=== PATIENT | male | born 1965 | race Caucasian/White ===

== ENCOUNTER 2021-02-05 16:57 | Outpatient (CLI) | payer BC ==
--- NOTE | 2021-02-05 19:24 | XRAY Report ---
PROCEDURE: Lumbar Spine 2 View INDICATIONS: LOW BACK PAIN TECHNIQUE: 3 views of the lumbar spine were acquired. COMPARISON: None. FINDINGS: Bones: 5 fjr-eku-bdanfft vertebrae are present. There is normal bony alignment. No vertebral body compression fractures. No suspicious bony lesions. Mild degenerative disc changes noted throughout t he lumbar spine. Mild L3-L4, L4-L5 L5-S1 facet arthropathy. Soft tissues: Overlying bowel gas pattern is normal. No suspicious soft tissue calcifications. Chol ecystectomy clips. IMPRESSION: 1. Mild multilevel degenerative disc disease. 2. Mild multilevel facet arthropathy. 3. No fracture. No acute osseous lesion. If there is continued clinical concern for pathology, then M RI should be considered for further evaluation. Reviewed by: Machelle Somers MD, PhD on 02/05/2021 7:23 PM PDT Approved by: Machelle Somers MD, PhD on 02/05/2021 7:23 PM PDT Station ID: [id number]
--- NOTE | 2021-02-05 19:25 | XRAY Report ---
PROCEDURE: Skull Complete INDICATIONS: CONGENITAL DEFORMITY OF SKULL TECHNIQUE: 3 view(s) of the skull acquired. COMPARISON: None FINDINGS: Bones: No fractures. No suspicious bony lesions. Visualized sinuses appear clear. Soft tissues: No soft tissue calcifications. No suspicious soft tissue densities. IMPRESSION: No calvarial deformity is identified by plain from radiograph. Reviewed by: Machelle Somers MD, PhD on 02/05/2021 7:24 PM PDT Approved by: Machelle Somers MD, PhD on 02/05/2021 7:24 PM PDT Station ID: [id number]
== END 2021-02-05 16:58 | disposition home or self-care (01) ==
LOC: DI 16:57
PROVIDERS: ATTEND Internal Medicine
DX: Q67.4 Other congenital deformities of skull, face and jaw (principal); M54.5 Low back pain; M47.816 Spondylosis without myelopathy or radiculopathy, lumbar region; M47.817 Spondylosis without myelopathy or radiculopathy, lumbosacral region; M51.36 Other intervertebral disc degeneration, lumbar region

== ENCOUNTER 2021-04-23 01:21 | Emergency (ER) | payer BC ==
[2021-04-23 01:32] VITALS: BP 165/73
--- NOTE | 2021-04-23 01:47 | ED Physician Documentation ---
History of Present Illness - Stated complaint Stated Complaint: L EAR PX - Chief complaint Chief Complaint: Trauma Hd/Nk - History obtained from History obtained from: Patient - Additonal information Additional information: Patient comes emergency department chief complaint of left ear pain for about the last 12 hours. He states he has a lot of chronic pain in his neck and back and has been off narcotics for 5 years, so he often takes hot baths to try to relieve the pain. He states that he frequently gets water in his ears and this has resulted in repeated bouts of otitis externa. The patient states that he also gets cerumen impactions and that this also sometimes causes his pain. No fevers or chills. No upper respiratory symptoms. No other complaints at this time. Review of Systems Ten Systems: 10 systems reviewed and negative Constitutional: reports: Reviewed and negative Eyes: reports: Reviewed and negative Ears: reports: Ear pain Nose: reports: Reviewed and negative Throat: reports: Reviewed and negative Cardiac: reports: Reviewed and negative Respiratory: reports: Reviewed and negative GI: reports: Reviewed and negative : reports: Reviewed and negative Skin: reports: Reviewed and negative Musculoskeletal: reports: Reviewed and negative Neurologic: reports: Reviewed and negative Psychiatric: reports: Reviewed and negative Endocrine: reports: Reviewed and negative Immunocompromised: reports: Reviewed and negative PD PAST MEDICAL HISTORY - Present Medications Home Medications: Ambulatory Orders Medication Instructions Recorded Confirmed Ciproflox/Dexameth Otic Drops 4 drops OT BID #7.5 ml 04/23/21 [Ciprodex Otic Drops] PD ED PE NORMAL - Vitals Vital signs reviewed: Yes - General General: Alert and oriented X 3, No acute distress, Well developed/nourished - HEENT HEENT: Atraumatic, PERRL, EOMI, Moist mucous membranes, Other (Hard, dry appearing cerumen impacted deep in left external auditory canal. Moderate erythema with slight amount of sloughing of canal skin, without edema. TM not visualized. 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 Tympanic membrane was visualized after the procedure and found to be intact. PD MEDICAL DECISION MAKING - ED course Complexity details: considered differential, d/w patient ED course: Ear was irrigated as above. I gave the patient a prescription for Ciprodex dr york. We have discussed the usual indications for follow-up and return. Departure - Departure Disposition: 01 Home, Self Care Clinical Impression: Cerumen impaction Qualifiers: Laterality: left Qualified Code(s): H61.22 - Impacted cerumen, left ear Otitis externa Qualifiers: Otitis externa type: swimmer's ear Chronicity: acute Laterality: left Qualified Code(s): H60.332 - Swimmer's ear, left ear Condition: Stable Instructions: ED Otitis Externa, ED Earwax Removal Prescriptions: Ciproflox/Dexameth Otic Drops [Ciprodex Otic Drops] 4 drops OT BID #7.5 ml
== END 2021-04-23 02:15 | disposition home or self-care (01) ==
LOC: ED 01:21
DX: H61.22 Impacted cerumen, left ear (principal); H60.332 Swimmer's ear, left ear
CPT/HCPCS: 69209; 99282; 99284

== ENCOUNTER 2021-04-25 09:34 | Emergency (ER) | payer BC ==
--- NOTE | 2021-04-25 12:06 | ED Physician Documentation ---
PD HPI HEENT - Chief complaint Chief Complaint: Heent - History obtained from History obtained from: Patient - Additional information Additional information: Patient returns emergency department chief complaint of left ear pain. He was seen here for the same thing a few nights ago except at that time, he felt that he had a cerumen impaction again and was requesting irrigation. The patient indeed was found to have a cerumen impaction as well as early otitis externa and after having his canal irrigated, he was started on Ciprodex drops. He was also instructed to keep his ear canal dry. The patient returns emergency department, stating that in the ensuing days, his left ear has become increasingly painful to the point where he can lay on it at night. No drainage. He states it feels as though his ear is swollen and he can't hear very well. No fevers or chills. No facial pain. Patient does note that while he initially could get the drops to go in his ear, and now it feels like they just sit on the edge and trickle out. No other complaints at this time. Review of Systems Ten Systems: 10 systems reviewed and negative Constitutional: reports: Reviewed and negative Eyes: reports: Reviewed and negative Ears: reports: Ear pain Nose: reports: Reviewed and negative Throat: reports: Reviewed and negative Cardiac: reports: Reviewed and negative Respiratory: reports: Reviewed and negative GI: reports: Reviewed and negative : reports: Reviewed and negative Skin: reports: Reviewed and negative Musculoskeletal: reports: Reviewed and negative Neurologic: reports: Reviewed and negative Psychiatric: reports: Reviewed and negative Endocrine: reports: Reviewed and negative Immunocompromised: reports: Reviewed and negative PD PAST MEDICAL HISTORY - Past Medical History Past Medical History: Yes Respiratory: None GI: GERD Derm: None - Past Surgical History Past Surgical History: No - Present Medications Home Medications: Ambulatory Orders Medication Instructions Recorded Confirmed Ciproflox/Dexameth Otic Drops 4 drops OT BID #7.5 ml 04/23/21 [Ciprodex Otic Drops] HYDROcod/ACETAM 5/325 [[place] 5/325] 1 - 2 tablet PO Q6H PRN #14 tablet 04/25/21 - Allergies Allergies/Adverse Reactions: Allergies Allergy/AdvReac Type Severity Reaction Status Date / Time No Known Drug Allergies Allergy Verified 04/25/21 10:10 - Social History Does the pt smoke?: No Smoking Status: Never smoker Does the pt drink ETOH?: No Does the pt have substance abuse?: No - Immunizations Immunizations are current?: Yes - POLST Patient has POLST: No PD ED PE NORMAL - Vitals Vital signs reviewed: Yes - General General: Alert and oriented X 3, No acute distress, Well developed/nourished - HEENT HEENT: Atraumatic, PERRL, EOMI, Ears normal (Moderate edema of external auditory canal on the left. No drainage. Mild amount of skin sloughing. No bleeding. 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 I placed an ear wick in the patient's left external auditory canal. I have instructed him regarding application of the drops to the wick and that he should continue on his Ciprodex for another week. I have also started him on an oral analgesic, as he is having a fair amount of pain related to this. We've discussed home management and symptoms, as well as usual indications for return. Departure - Departure Disposition: 01 Home, Self Care Clinical Impression: Otitis externa Qualifiers: Otitis externa type: swimmer's ear Chronicity: acute Laterality: left Qualified Code(s): H60.332 - Swimmer's ear, left ear Condition: Stable Instructions: ED Otitis Externa Prescriptions: HYDROcod/ACETAM 5/325 [[place] 5/325] 1 - 2 tablet PO Q6H PRN #14 tablet PRN Reason: Pain Comments: Your otitis externa is little worse than it was, probably because of the moisture from having your ear irrigated. You have been on the correct drops and should continue these for the next week at home. An ear wick has been placed today to help facilitate passage of the drops into your swollen ear canal. As the inflammation in your ear dies down, the wick will fall out on its own. You should continue to Use the drops, and use the technique that we have discussed to allow the drops to soak into the wick. Please avoid any other moisture in your ear. If you continue to have problems after the drops are done, you will need to talk to your doctor about being referred to the ear nose throat specialist to have another look at your ear. Your pain medication prescription has been electronically transmitted to [facility] in [place]. Discharge Date/Time: 04/25/21 12:14
[2021-04-25 12:14] VITALS: BP 154/87
== END 2021-04-25 12:14 | disposition home or self-care (01) ==
LOC: ED 09:34
DX: H60.332 Swimmer's ear, left ear (principal)
CPT/HCPCS: 99282; 99283

== ENCOUNTER 2021-10-08 16:44 | Emergency (ER) | payer BC ==
[2021-10-08] MEDS ORDERED: KETOROLAC 60 MG/2 ML VIAL IM STA (17:01)
--- NOTE | 2021-10-08 17:03 | ED Physician Documentation ---
PD HPI CHEST PAIN - Stated complaint Stated Complaint: RT SIDE RIB PX/INJ/SOA - Chief complaint Chief Complaint: Resp - History obtained from History obtained from: Patient - Additional information Additional information: 56-year-old gentleman was leaning over the center console in his car and felt excruciating pain in the right mid anterolateral chest from putting all of his weight on that part of his chest. No other injuries but now he has a headache related to the pain. Nausea but no vomiting. Is hard to take a deep breath and he feels mildly short of breath with it. Review of Systems Constitutional: denies: Fever, Chills Throat: denies: Sore throat Cardiac: denies: Palpitations Respiratory: denies: Cough GI: denies: Abdominal Pain PD PAST MEDICAL HISTORY - Past Medical History Respiratory: None GI: GERD Derm: None - Past Surgical History Past Surgical History: No - Present Medications Home Medications: Ambulatory Orders Medication Instructions Recorded Confirmed Ciproflox/Dexameth Otic Drops 4 drops OT BID #7.5 ml 04/23/21 [Ciprodex Otic Drops] HYDROcod/ACETAM 5/325 [[place] 5/325] 1 - 2 tablet PO Q6H PRN #14 tablet 04/25/21 Oxycodone HCl/Acetaminophen 1 - 2 each PO Q6H PRN #20 tablet 10/08/21 [Percocet 5-325 mg Tablet] - Allergies Allergies/Adverse Reactions: Allergies Allergy/AdvReac Type Severity Reaction Status Date / Time No Known Drug Allergies Allergy Verified 10/08/21 16:53 - Social History Does the pt smoke?: No Smoking Status: Never smoker Does the pt drink ETOH?: No Does the pt have substance abuse?: No - Immunizations Immunizations are current?: Yes - POLST Patient has POLST: No PD ED PE NORMAL - Vitals Vital signs reviewed: Yes - General General: Alert and oriented X 3, Other (Appears uncomfortable due to the pain) - Neck Neck: Supple, no meningeal sign, No bony TTP - Cardiac Cardiac: RRR, No murmur - Respiratory Respiratory: No respiratory distress, Clear bilaterally, Other (Tender to around rib 8/10 or so in the anterior axillary line on the right. Winces with deep breathing but breath sounds are symmetric) - Abdomen Abdomen: Non tender - Extremities Extremities: No edema, No calf tenderness / cord - Neuro Neuro: Alert and oriented X 3, Normal speech Results - Vitals Vitals: Vital Signs - 24 hr 10/08/21 16:51 Temperature 36.6 C Heart Rate 80 Respiratory 16 Rate Blood Pressure 151/87 H O2 Saturation 97 Oxygen O2 Source Room air - Rads (name of study) CT Chest Radiology: EMP read contemporaneously PD MEDICAL DECISION MAKING - ED course ED course: 56-year-old gentleman with a chest wall injury. Significant pain with motion and deep breathing. CT of the chest is without sign of rib fracture or other traumatic injury. He was given Toradol here as he was driving without much pain relief. I am prescribing a short course of short-acting opioid pain medication for this patient. I have reviewed the patients DIRECTOR DESIGN and no concerning findings were noted. I have discussed that the opioids are for short term therapy only, and will not be refilled from the ED. Departure - Departure Disposition: 01 Home, Self Care Clinical Impression: Intercostal muscle strain, Blunt chest trauma Condition: Good Record reviewed to determine appropriate education?: Yes Instructions: ED Contusion Chest Wall Prescriptions: Oxycodone HCl/Acetaminophen [Percocet 5-325 mg Tablet] 1 - 2 each PO Q6H PRN #20 tablet PRN Reason: pain Comments: I sent your prescription electronically to [facility] in [place]. Follow-up with your doctor early next week if not better, return for new or worsening symptoms. I am prescribing a short course of narcotic pain medication for you. These are potentially dangerous and addictive medications that should be used carefully. These medications may constipate you. Take an orui-knq-furjpgs stool softener (docusate) twice daily with plenty of water while taking these medications. If you go 24 hours without a bowel movement, take samv-qiw-[id number] miralax, per package instructions. Do not drink or drive while taking these medications. If you received narcotic or sedating medications while in the emergency department, do not drive for 24 hours. Store this medication in a safe, secure place and out of reach of children. It is a violation of federal law to give or sell this medication to another person or to use in a manner other than prescribed. The ED will not refill narcotic prescriptions, including prescriptions lost or stolen. To dispose of unwanted medications: 1. [facility] at [address] in [place] has a medication drop box. They accept prescription medications (in pill form) Monday through Monday 9:00 a.m. to 5:00 p.m. 2. [facility] accepts prescription medications (in pill form only) for disposal year round. Call for more information. 3. Contact the [facility] for the next [facility] sponsored prescription drug collection event. , [phone], or [phone]; Note that many narcotic pain relievers also contain Tylenol/acetaminophen. Please ensure that your total dose of acetaminophen from all sources does not exceed 3 g (3000 mg) per day.
--- NOTE | 2021-10-08 17:46 | CT Report ---
PROCEDURE: CHEST WO INDICATIONS: chest injury TECHNIQUE: Noncontrast 1mm axial images were acquired from the pulmonary apices to the posterior costophrenic an gles. Axial 5 mm soft tissue kernel reconstructions were performed as well as 8 mm axial MIP and cor onal and sagittal 5 mm reformations. For radiation dose reduction, the following was used: automate d exposure control, adjustment of mA and/or kV according to patient size. COMPARISON: None FINDINGS: Image quality: Excellent. Lungs and pleura: Linear opacities are present within the bases most notable on the right suggestive of atelectasis. No pleural effusions or pneumothorax. Central and peripheral airways are patent and normal in caliber. Mediastinum: Heart size is normal. No pericardial effusion. No mediastinal adenopathy by size crit eria. Thoracic aorta and central pulmonary arteries are normal in size. Esophagus is normal in thony robyn. No hiatal hernia. Bones and chest wall: No suspicious bony lesions. No vertebral body compression fractures. No axil latanya or supraclavicular adenopathy by size criteria. The thyroid is normal in size and there are no incidental findings. Abdomen: Visualized upper abdominal solid organs and bowel loops appear normal in the absence of con trast. IMPRESSION: No visualized traumatic injury. CLINICAL RECOMMENDATION STATEMENTS: In patients <35 years with an ITN detected on CT, MRI, or extrathyroidal ultrasound, the Committee re commends further evaluation with dedicated thyroid ultrasound if the nodule is "e1 cm and has no susp icious imaging features, and if the patient has normal life expectancy. In patients "e35 years with an ITN detected on CT, MRI, or extrathyroidal ultrasound, the Committee r ecommends further evaluation with dedicated thyroid ultrasound if the nodule is "e1.5 cm and has no s uspicious imaging features, and if the patient has normal life expectancy. (ACR, 2014) Reviewed by: Mago Ash MD on 10/08/2021 5:45 PM PDT Approved by: Mago Ash MD on 10/08/2021 5:45 PM PDT Station ID: [id number]
[2021-10-08 18:00] VITALS: BP 140/72
== END 2021-10-08 18:03 | disposition home or self-care (01) ==
LOC: ED 16:44
DX: S29.011A Strain of muscle and tendon of front wall of thorax, initial encounter (principal); X58.XXXA Exposure to other specified factors, initial encounter
CPT/HCPCS: 96372; 99283; 99284

== ENCOUNTER 2023-04-25 08:00 | Outpatient (CLI) | payer BC | END 2023-04-25 23:59 | disposition home or self-care (01) | LOC: LAB.N 08:00 | PROVIDERS: ATTEND Physician Assistant Medical | DX: R30.0 Dysuria (principal) | CPT/HCPCS: 87086 ==

== ENCOUNTER 2023-04-25 13:44 | Outpatient (CLI) | payer BC ==
--- NOTE | 2023-04-25 16:36 | XRAY Report ---
PROCEDURE: Chest 2 View X-Ray INDICATIONS: ACUTE COUGH TECHNIQUE: 2 views of the chest were acquired. COMPARISON: 10/20/2022. FINDINGS: Surgical changes and devices: None. Lungs and pleura: No pleural effusions or pneumothorax. Lungs are clear. Bilateral eventration of the diaphragms. Associated atelectasis versus scarring in the lung bases. No acute infiltrates. Mediastinum: Mediastinal contours appear normal. Heart size is normal. Bones and chest wall: No suspicious bony lesions. Overlying soft tissues appear unremarkable. IMPRESSION: Bilateral diaphragmatic eventrations with associated atelectasis versus scarring in the lung bases. N o acute pulmonary process. Reviewed by: Cayden Hicks MD on 04/25/2023 4:34 PM PST Approved by: Cayden Hicks MD on 04/25/2023 4:34 PM PST Station ID: [id number]
== END 2023-04-25 23:59 | disposition home or self-care (01) ==
LOC: DI.N 13:44
PROVIDERS: ATTEND Physician Assistant Medical
DX: R05.1 Acute cough (principal); R30.0 Dysuria
CPT/HCPCS: 87086